=== PATIENT | male | born 1990 | race African-American/Black ===

== ENCOUNTER 2017-09-25 00:05 | Emergency (ER) | payer SELFPAY ==
[~2017-09-25] VITALS: Ht 172.7 cm; Wt 81.6 kg
[2017-09-25 00:11] VITALS: BP 151/87
--- NOTE | 2017-09-25 00:17 | Emergency Room Report ---
History of Present Illness General Chief Complaint: To Be Triaged Source: Patient Present Illness HPI 27-year-old male brought in by police for okay to book, he was here for a DUI, and refusing to answer medical clearance questions to PD. Here he denies any medical problems to me and denied hurting himself tonight. He was not giving much other history but did answer those questions. He was cursing at the property officer and speaking clearly, blaming the police for escalating the situation to him coming to the ER, and ambulated with a stable gait, moving his arms behind his back where he was hand cuffed. Patient History Past Medical History: see triage record Reviewed Nursing Documentation: PMH: Agreed; PSxH: Agreed Review of Systems Constitutional: Denies: fever Eye: Denies: acuity changes Respiratory: Denies: cough, shortness of breath Cardiovascular: Denies: chest pain Gastrointestinal: Denies: nausea, vomiting Skin: Denies: rash Neurological: Denies: headache All Other Systems: limited - patient limited in his cooperation Physical Exam [id number] EP Interpretation: reviewed, normal General Appearance: well appearing, no apparent distress, alert, non-toxic Head: normocephalic, atraumatic Eyes: bilateral eye normal inspection, bilateral eye EOMI ENT: hearing grossly normal, normal voice Neck: full range of motion, supple, thyroid normal Respiratory: normal inspection, chest non-tender, lungs clear, normal breath sounds, no rhonchi, no respiratory distress, no retraction, no accessory muscle use, no wheezing, speaking full sentences Cardiovascular #1: normal inspection, regular rate, rhythm, no edema, no gallop , no murmur, no rub Cardiovascular #2: 2+ radial (R), 2+ radial (L) Gastrointestinal: normal inspection, non tender, soft, no mass, no peritonitis , no guarding Rectal: deferred Genitourinary: no CVA tenderness Musculoskeletal: gait/station normal, normal range of motion Neurologic: normal inspection, alert, normal gait, grossly normal Psychiatric: normal inspection, judgement/insight normal, mood/affect normal Skin: normal color, no rash, warm/dry Medical Decision Making Diagnostic Impression: Primary Impression: Medical clearance for incarceration ER Course Patient does not appear to be in any distress at all, has been drinking, but is not overtly intoxicated enough that he is slurring his speech or has any obvious motor deficits. He is medically clear at this time Disposition: D/C TO LAW ENFORCEMENT IN [facility] Condition: Stable Departure Forms: [facility] Clearance SHILA SAUCEDO M.D Sep 25, 2017 00:17
== END 2017-09-25 00:30 ==
LOC: EMR 00:17
DX: Z02.89 Encounter for other administrative examinations (principal)
CPT/HCPCS: 99283